=== PATIENT | female | born 1970 | race American Indian/Alaskan Native ===

== ENCOUNTER 2016-08-02 19:23 | Emergency (ER) | payer BC ==
[2016-08-02 20:45] VITALS: BP 123/79
--- NOTE | 2016-08-02 21:35 | Emergency Department Report ---
Chief Complaint: Abdominal Pain Stated Complaint: FATIGUE/HEADACHE Time Seen by Provider: 08/02/16 21:20 - HPI History of Present Illness: 46-year-old female presents today complaining of cough and cold symptoms, fatigue, abdominal pain. Patient states that she has been having cough and cold symptoms 1.5 weeks. Patient was given a Z-Nemesio and steroids by primary care provider and reports no symptomatic relief. Also complaining of right- sided abdominal pain with discolored bowel movement 3 days. - ROS Review of Systems: Per HPI - Exam Vital Signs: Vital Signs 08/02/16 20:36 Temperature 98.8 F Pulse Rate 85 Respiratory 18 Rate Blood Pressure 123/79 O2 Sat by Pulse 100 Oximetry Physical Exam: General: 46-year-old female in no acute distress. Well-developed, well- nourished. CV: Regular rate and rhythm. Lungs: Clear to auscultation bilaterally. Abdomen: Minimal tenderness to palpation of right upper quadrant. No guarding or rebound tenderness. MSE screening note: Focused history and physical exam performed. Due to findings the following was ordered: ED Disposition for MSE Condition: Stable Instructions: Abdominal Pain (ED)
[2016-08-02 22:27] LABS: Hematocrit 43.4 % (30.3-42.9); Hemoglobin 14.5 gm/dl (10.1-14.3); Mean Corpuscular HGB Conc 33 % (30-34); Mean Corpuscular Hemoglobin 29 pg (28-32); Mean Corpuscular Volume 86 fl (79-97); Platelet Count 244 K/mm3 (140-440); Red Blood Count 5.03 M/mm3 (3.65-5.03); Red Cell Distribution Width 13.1 % (13.2-15.2); White Blood Count 8.5 K/mm3 (4.5-11.0)
[2016-08-02 23:08] LABS: Basophils % (Manual) 0 % (0.0-1.8); Blastocytes % (Manual) 0 %; Diff Status Complete; RBC Morphology Normal
[2016-08-03 00:11] LABS: Alanine Aminotransferase 23 units/L (7-56); Albumin 4.3 g/dL (3.9-5); Albumin/Globulin Ratio 1.3 %; Alkaline Phosphatase 71 units/L (35-129); Anion Gap 20 mmol/L; Bilirubin,Total 0.2 mg/dL (0.1-1.2); Blood Urea Nitrogen 14 mg/dL (7-17); Calcium 9.3 mg/dL (8.4-10.2); Carbon Dioxide 25 mmol/L (22-30); Chloride 101.4 mmol/L (98-107); Glucose 96 mg/dL (65-100); Lipase 40 units/L (13-60); Potassium 3.2 mmol/L (3.6-5.0); Sodium 143 mmol/L (137-145); Total Protein 7.6 g/dL (6.3-8.2)
[2016-08-03 00:19] LABS: Bilirubin,Direct < 0.2 mg/dL (0-0.2)
--- NOTE | 2016-08-04 18:31 | ED Elopement Review ---
ED Pt Elopement review - Results review Lab results: Laboratory Tests 08/02/16 08/02/16 08/02/16 21:47 21:47 21:47 WBC 8.5 RBC 5.03 Hgb 14.5 H Hct 43.4 H MCV 86 MCH 29 MCHC 33 RDW 13.1 L Plt Count 244 Add Manual Diff Complete Total Counted 100 Seg Neuts % (Manual) 51.0 Band Neutrophils % 0 Lymphocytes % (Manual) 43.0 H Reactive Lymphs % (Man) 0 Monocytes % (Manual) 5.0 Eosinophils % (Manual) 1.0 Basophils % (Manual) 0 Metamyelocytes % 0 Myelocytes % 0 Promyelocytes % 0 Blast Cells % 0 Nucleated RBC % Not Reportable Seg Neutrophils # Man 4.3 Band Neutrophils # 0.0 Lymphocytes # (Manual) 3.7 Abs React Lymphs (Man) 0.0 Monocytes # (Manual) 0.4 Eosinophils # (Manual) 0.1 Basophils # (Manual) 0.0 Metamyelocytes # 0.0 Myelocytes # 0.0 Promyelocytes # 0.0 Blast Cells # 0.0 WBC Morphology Not Reportable Hypersegmented Neuts Not Reportable Hyposegmented Neuts Not Reportable Hypogranular Neuts Not Reportable Smudge Cells Not Reportable Toxic Granulation Not Reportable Toxic Vacuolation Not Reportable Dohle Bodies Not Reportable Pelger-Huet Anomaly Not Reportable Issac Rods Not Reportable Platelet Estimate Appears normal Clumped Platelets Not Reportable Plt Clumps, EDTA Not Reportable Large Platelets Not Reportable Giant Platelets Not Reportable Platelet Satelliting Not Reportable Plt Morphology Comment Not Reportable RBC Morphology Normal Dimorphic RBCs Not Reportable Polychromasia Not Reportable Hypochromasia Not Reportable Poikilocytosis Not Reportable Anisocytosis Not Reportable Microcytosis Not Reportable Macrocytosis Not Reportable Spherocytes Not Reportable Pappenheimer Bodies Not Reportable Sickle Cells Not Reportable Target Cells Not Reportable Tear Drop Cells Not Reportable Ovalocytes Not Reportable Helmet Cells Not Reportable [place] Bodies Not Reportable [place] Rings Not Reportable Andrew Cells Not Reportable Bite Cells Not Reportable Crenated Cell Not Reportable Elliptocytes Not Reportable Acanthocytes (Spur) Not Reportable Rouleaux Not Reportable Hemoglobin C Crystals Not Reportable Schistocytes Not Reportable Malaria parasites Not Reportable Stan Bodies Not Reportable Hem Pathologist Commnt No Sodium 143 Potassium 3.2 L Chloride 101.4 Carbon Dioxide 25 Anion Gap 20 BUN 14 Creatinine 0.5 L Estimated GFR > 60 BUN/Creatinine Ratio 28.00 Glucose 96 Calcium 9.3 Total Bilirubin 0.2 Direct Bilirubin < 0.2 Indirect Bilirubin 0.0 AST 16 ALT 23 Alkaline Phosphatase 71 Total Protein 7.6 Albumin 4.3 Albumin/Globulin Ratio 1.3 Amylase 105 Lipase 40 - Call Back decision Pt Call Back Decision: Pt to F/U with PMD
== END 2016-08-02 23:45 | disposition left against medical advice (07) ==
LOC: ED 19:23
DX: R05 Cough (principal); R53.83 Other fatigue; R10.9 Unspecified abdominal pain; Z53.21 Procedure and treatment not carried out due to patient leaving prior to being seen by health care provider
CPT/HCPCS: 36415; 80048; 80074; 82150; 83690; 85007; 85025

== ENCOUNTER 2016-09-19 15:33 | Emergency (ER) | payer BC ==
[2016-09-19 15:56] VITALS: BP 115/75
--- NOTE | 2016-09-19 20:08 | Emergency Department Report ---
- General Chief Complaint: Sore Throat Stated Complaint: SORE THROAT Time Seen by Provider: 09/19/16 20:03 Source: patient Mode of arrival: Ambulatory Limitations: No Limitations - History of Present Illness Initial Comments: 46 F PMH Lap band surgery, kidney stones, presents with complaint of one month of slightly productive cough. Patient is awake alert and oriented 3 denies any chest pain no palpitations states that she has a sore throat and has had a persistent cough for nearly 1 month. Patient was recently on a course of azithromycin and Levaquin prescribed by her primary doctor, states that she finished Levaquin approximately 5 or 6 days ago but is still having a cough. Denies any fever or chills. Eyes any abdominal pain. Denies any recent travel. 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 MD Complaint: cough, sore throat Onset/Timin -: week(s) Severity: moderate Worsens With: nothing Context: sick contacts Associated Symptoms: sore throat, cough - Related Data Previous Rx's Medication Instructions Recorded Last Taken Type Amoxicillin 500 mg PO BID #20 tablet 07/19/14 Unknown Rx Guaifenesin/Codeine Phosphate 10 ml PO BID #118 ml 07/19/14 Unknown Rx [guaiFENesin-Codeine Syrup] Ibuprofen [Motrin 800 MG tab] 800 mg PO Q8H PRN #21 tablet 07/19/14 Unknown Rx Loratadine [Claritin RAPDIS] 10 mg PO QDAY #30 tab.rapdis 07/19/14 Unknown Rx HYDROcodone/APAP 5-325 [[place] 1 each PO Q6HR PRN #12 tablet 08/26/14 Unknown Rx 5-325 mg TAB] Lansoprazole [Prevacid] 15 mg PO QDAY #30 cap 08/26/14 Unknown Rx Ondansetron [Zofran TAB] 4 mg PO Q6HR PRN #15 tablet 08/26/14 Unknown Rx ALBUTEROL Inhaler [ProAir HFA 1 puff IH Q4H PRN #1 inha 09/19/16 Unknown Rx Inhaler] Benzocaine/Menthol [Cepacol Sore 1 each MM Q4H PRN #18 lozenge 09/19/16 Unknown Rx Throat Lozenge] Allergies Allergy/AdvReac Type Severity Reaction Status Date / Time No Known Allergies Allergy Verified 03/03/15 09:32 ED Review of Systems ROS: Stated complaint: SORE THROAT Other details as noted in HPI Constitutional: denies: chills, fever Eyes: denies: eye pain, eye discharge, vision change ENT: denies: ear pain, throat pain Respiratory: denies: cough, shortness of breath, wheezing Cardiovascular: denies: chest pain, palpitations Endocrine: no symptoms reported Gastrointestinal: denies: abdominal pain, nausea, diarrhea Genitourinary: denies: urgency, dysuria, discharge Musculoskeletal: denies: back pain, joint swelling, arthralgia Skin: denies: rash, lesions Neurological: denies: headache, weakness, paresthesias Psychiatric: denies: anxiety, depression Hematological/Lymphatic: denies: easy bleeding, easy bruising ED Past Medical Hx - Past Medical History Previous Medical History?: Yes Hx Kidney Stones: Yes - Surgical History Past Surgical History?: Yes Hx Cholecystectomy: Yes Additional Surgical History: Lap band, hysterectomy, lithotripsy x 3 - Social History Smoking Status: Current Some Day Smoker Substance Use Type: Alcohol - Medications Home Medications: Home Medications Medication Instructions Recorded Confirmed Last Taken Type Amoxicillin 500 mg PO BID #20 tablet 07/19/14 Unknown Rx Guaifenesin/Codeine Phosphate 10 ml PO BID #118 ml 07/19/14 Unknown Rx [guaiFENesin-Codeine Syrup] Ibuprofen [Motrin 800 MG tab] 800 mg PO Q8H PRN #21 tablet 07/19/14 Unknown Rx Loratadine [Claritin RAPDIS] 10 mg PO QDAY #30 tab.rapdis 07/19/14 Unknown Rx HYDROcodone/APAP 5-325 [[place] 1 each PO Q6HR PRN #12 tablet 08/26/14 Unknown Rx 5-325 mg TAB] Lansoprazole [Prevacid] 15 mg PO QDAY #30 cap 08/26/14 Unknown Rx Ondansetron [Zofran TAB] 4 mg PO Q6HR PRN #15 tablet 08/26/14 Unknown Rx ALBUTEROL Inhaler [ProAir HFA 1 puff IH Q4H PRN #1 inha 09/19/16 Unknown Rx Inhaler] Benzocaine/Menthol [Cepacol Sore 1 each MM Q4H PRN #18 lozenge 09/19/16 Unknown Rx Throat Lozenge] ED Physical Exam - General Limitations: No Limitations General appearance: alert, in no apparent distress - Head Head exam: Present: atraumatic, normocephalic - Eye Eye exam: Present: normal appearance, PERRL, EOMI - ENT ENT exam: Present: mucous membranes moist - Neck Neck exam: Present: normal inspection, full ROM - Respiratory Respiratory exam: Present: normal lung sounds bilaterally. Absent: respiratory distress - Cardiovascular Cardiovascular Exam: Present: regular rate, normal rhythm. Absent: systolic murmur, diastolic murmur, rubs, gallop - GI/Abdominal GI/Abdominal exam: Present: soft, normal bowel sounds - Extremities Exam Extremities exam: Present: normal inspection - Back Exam Back exam: Present: normal inspection - Neurological Exam Neurological exam: Present: alert, oriented X3, CN II-XII intact, normal gait - Psychiatric Psychiatric exam: Present: normal affect, normal mood - Skin Skin exam: Present: warm, dry, intact, normal color. Absent: rash ED Course Vital Signs 09/19/16 15:54 Temperature 98.2 F Pulse Rate 88 Respiratory 20 Rate Blood Pressure 115/75 O2 Sat by Pulse 97 Oximetry ED Medical Decision Making - Lab Data Result diagrams: 09/19/16 20:17 09/19/16 20:17 - Medical Decision Making A/P: Bronchitis, viral syndrome, URI 1-strep test and influenza negative 2-x-ray unremarkable 3-labs within normal limits 4-albuterol inhaler PRN, guaifenessin PRN. I advised pt to f/u with her PMD 5- i reviewed CXR with Dr. Vazquez, no PNA Critical care attestation.: If time is entered above; I have spent that time in minutes in the direct care of this critically ill patient, excluding procedure time. ED Disposition Clinical Impression: Viral syndrome Upper respiratory infection Qualifiers: URI type: unspecified viral URI Qualified Code(s): J06.9 - Acute upper respiratory infection, unspecified; B97.89 - Other viral agents as the cause of diseases classified elsewhere Disposition: DISCHARGED TO HOME OR SELFCARE Is pt being admited?: No Does the pt Need Aspirin: No Condition: Stable Instructions: Upper Respiratory Infection (ED), Viral Syndrome (ED), Cold Symptoms (ED) Prescriptions: ALBUTEROL Inhaler [ProAir HFA Inhaler] 1 puff IH Q4H PRN #1 inha PRN Reason: Cough Benzocaine/Menthol [Cepacol Sore Throat Lozenge] 1 each MM Q4H PRN #18 lozenge PRN Reason: Cough Referrals: LEON FERREIRA MD [Staff Physician] - 3-5 Days Forms: Work/School Release Form(ED) Time of Disposition: 21:53
[2016-09-19 20:51] LABS: Basophils % (Auto) 0.5 % (0.0-1.8); Eosinophils % (Auto) 3.6 % (0.0-4.3); Hemoglobin 14.7 gm/dl (10.1-14.3); Mean Corpuscular HGB Conc 33 % (30-34); Mean Corpuscular Hemoglobin 29 pg (28-32); Mean Corpuscular Volume 86 fl (79-97); Platelet Count 197 K/mm3 (140-440); Red Blood Count 5.12 M/mm3 (3.65-5.03); Red Cell Distribution Width 13.5 % (13.2-15.2)
[2016-09-19 21:09] LABS: Anion Gap 17 mmol/L; BUN/Creatinine Ratio 28.33; Blood Urea Nitrogen 17 mg/dL (7-17); Calcium 9.4 mg/dL (8.4-10.2); Carbon Dioxide 24 mmol/L (22-30); Chloride 101.7 mmol/L (98-107); Glucose 96 mg/dL (65-100); Potassium 3.9 mmol/L (3.6-5.0); Sodium 139 mmol/L (137-145)
--- NOTE | 2016-09-20 08:23 | XRay Report ---
ROUTINE CHEST, TWO VIEWS: PA and lateral views demonstrate the heart and mediastinal contour to be of normal size and shape. The lungs are clear and fully expanded and the soft tissues and bony structures are normal. IMPRESSION: Normal study.
== END 2016-09-19 22:27 | disposition home or self-care (01) ==
LOC: ED 15:33
DX: J06.9 Acute upper respiratory infection, unspecified (principal); B97.89 Other viral agents as the cause of diseases classified elsewhere; B34.9 Viral infection, unspecified; F17.200 Nicotine dependence, unspecified, uncomplicated
CPT/HCPCS: 36415; 71020; 80048; 82805; 85025; 87116; 87400; 87430; 99283

== ENCOUNTER 2016-10-18 14:07 | Outpatient (CLI) | payer BC ==
--- NOTE | 2016-10-19 10:50 | Magnetic Resonance Report ---
MRI LUMBAR SPINE WITHOUT CONTRAST HISTORY: Lower back pain. TECHNIQUE: axial T1, T2. sagittal T1,T2, STIR. COMPARISON: none. FINDINGS: The conus terminates at L1. No signal abnormality or mass. The cauda equina is within normal limits. No central canal stenosis. Normal height and alignment of the lumbar vertebra. The facet joints are in appropriate relationship. Normal bone marrow signal. 1 cm vertebral bone marrow angioma and L1 is noted. No acute fracture or suspicious bone lesion. Mild disc desiccation and minimal narrowing is noted at the L4-5 disc space. The remaining discs are within normal limits. Minimal to mild diffuse facet arthropathy. L4-5 is also the most affected level. An approximate 1 cm synovial cyst projects posteriorly from the right facet joint at this level. The paraspinal soft tissues are unremarkable. L1-2: No abnormality. L2-3: No abnormality. L3-4: No abnormality. L4-5: Mild disc desiccation and narrowing. No bulging disc, herniation or canal stenosis. Mild facet arthropathy. L5-S1: No abnormality. IMPRESSION: Mild lumbar spondylosis as outlined above. L4-5 is the most affected level. No evidence for central canal narrowing or neural foraminal narrowing..
== END 2016-10-18 14:08 | disposition home or self-care (01) ==
LOC: MRI 14:07
PROVIDERS: ATTEND Internal Medicine
DX: M47.896 Other spondylosis, lumbar region (principal); M71.38 Other bursal cyst, other site; M12.88 Other specific arthropathies, not elsewhere classified, other specified site
CPT/HCPCS: 72148

== ENCOUNTER 2017-06-21 15:20 | Outpatient (CLI) | payer BC ==
--- NOTE | 2017-06-22 15:28 | Mammography Report ---
BILATERAL DIGITAL SCREENING MAMMOGRAM with CAD : 06/21/17 15:20:00 CLINICAL: Routine screening.Previous bilateral benign biopsies. COMPARISON:2012, 2014 and 2015 mammograms from [facility] FINDINGS: The breasts are heterogeneously dense, which may obscure small masses. Stable left retroareolar parenchymal asymmetry with architectural distortion. No mass or suspicious calcifications. IMPRESSION: No mammographic evidence of malignancy. BI-RADS CATEGORY: 2 -- Benign RECOMMENDATION: Routine mammographic screening in one year. COMMENT: Patient follow-up letters are generated by our [employer] application.
== END 2017-06-21 15:21 | disposition home or self-care (01) ==
LOC: SPVWC 15:20
DX: Z12.31 Encounter for screening mammogram for malignant neoplasm of breast (principal)
CPT/HCPCS: 77067; G0202

== ENCOUNTER 2017-09-19 20:06 | Emergency (ER) | payer BC ==
[2017-09-19 20:29] VITALS: BP 158/91
--- NOTE | 2017-09-19 21:32 | Cat Scan Report ---
FINAL REPORT PROCEDURE: CT ABDOMEN PELVIS WO CON TECHNIQUE: Computerized axial tomography of the abdomen and pelvis was performed without intravenous contrast. This study is performed without intravascular contrast material and its sensitivity for abdominal and pelvic pathology, including neoplasms, inflammation, abscess, free fluid, thrombosis, arterial dissection and infarction, is reduced compared with a contrast enhanced study. HISTORY: R mid back pain, h/o kidney stones COMPARISON: No prior studies are available for comparison. FINDINGS: Visualized lower thorax: No significant abnormality. Liver: Enlarged liver with diffuse fatty infiltration. Spleen: Normal size and attenuation. Gallbladder and biliary system: Metallic clips gallbladder fossa. Pancreas: Normal. Adrenals: Normal. Kidneys: Tiny calculi kidneys sub millimeter range left upper pole right upper pole right lower pole. GI tract: Gastric banding device with associated catheter and pump. Lymph nodes and mesentery: Normal. Vasculature: Normal. Bladder: Normal. Reproductive organs: Surgically absent. Peritoneum: No free fluid. Musculoskeletal structures: No significant abnormality. Other: None. IMPRESSION: Faint calculi suspected. No obstructive uropathy seen
[2017-09-19 22:50] LABS: Bilirubin,Urine NEG (Negative); Blood,Urine NEG (Negative); Color,Urine Yellow (Yellow); Mucus,Urine FEW /HPF; Protein,Urine <15 mg/dL mg/dL (Negative); RBC,Urine < 1.0 /HPF (0.0-6.0); Urobilinogen,Urine < 2.0 mg/dL (<2.0)
[2017-09-19 22:51] LABS: WBC,Urine < 1.0 /HPF (0.0-6.0)
[2017-09-19] MEDS ORDERED: NORCO 5/325 ONE (23:43)
[2017-09-19] MEDS ORDERED: NORCO 5/325 PO ONE (23:43)
--- NOTE | 2017-09-20 02:25 | Emergency Department Report ---
ED Back Pain/Injury HPI - General Chief Complaint: Back Pain/Injury Stated Complaint: BACK PAIN Time Seen by Provider: 09/20/17 01:30 Source: patient Mode of arrival: Ambulatory Limitations: No Limitations - History of Present Illness Initial Comments: This is a 47 y.o. female that presents with right flank pain while working out today at the gym. Patient reports lifting weights and filling like she pulled something but the pain was sharp and intermittent pain. She have a history of kidney stones and reports this pain as the same pain experienced with that in the past. States pain remains in right flank and non-radiating. Pain is 10/10 on pain scale. She is currently followed by pain management and taking medication for that which is not touching this pain. Patient states pain is so severe she can hardly catch her breath. States usually she have to have lethotripsy to resolve stones because they don't travel down. Denies change in voiding pattern, low abdominal pain, urgency, frequency, nausea, vomiting, or hematuria. MD Complaint: back pain -: This evening (while at the gym) Similar Symptoms Previously: Yes (history of kidney stones) Place: other (gym) Radiation: none Severity: severe Severity scale (0 -10): 10 Quality: sharp, stabbing, aching Consistency: intermittent Improves With: immobilization Worsens With: movement, deep breaths/cough Context: while lifting (weights at gym) Associated Symptoms: denies other symptoms Treatments Prior to Arrival: prescription analgesics - Related Data Previous Rx's Medication Instructions Recorded Last Taken Type Amoxicillin 500 mg PO BID #20 tablet 07/19/14 Unknown Rx Codeine Phosphate/Guaifenesin 10 ml PO BID #118 ml 07/19/14 Unknown Rx [guaiFENesin-Codeine Syrup] Ibuprofen [Motrin 800 MG tab] 800 mg PO Q8H PRN #21 tablet 07/19/14 Unknown Rx Loratadine [Claritin RAPDIS] 10 mg PO QDAY #30 tab.rapdis 07/19/14 Unknown Rx HYDROcodone/APAP 5-325 [[place] 1 each PO Q6HR PRN #12 tablet 08/26/14 Unknown Rx 5-325 mg TAB] Lansoprazole [Prevacid] 15 mg PO QDAY #30 cap 08/26/14 Unknown Rx Ondansetron [Zofran TAB] 4 mg PO Q6HR PRN #15 tablet 08/26/14 Unknown Rx ALBUTEROL Inhaler [ProAir HFA 1 puff IH Q4H PRN #1 inha 09/19/16 Unknown Rx Inhaler] Benzocaine/Menthol [Cepacol Sore 1 each MM Q4H PRN #18 lozenge 09/19/16 Unknown Rx Throat Lozenge] Allergies Allergy/AdvReac Type Severity Reaction Status Date / Time No Known Allergies Allergy Verified 09/09/14 09:32 ED Review of Systems ROS: Stated complaint: BACK PAIN Other details as noted in HPI Constitutional: denies: chills, fever Respiratory: denies: cough, shortness of breath, wheezing Cardiovascular: denies: chest pain, palpitations, dyspnea on exertion, edema Gastrointestinal: denies: abdominal pain, nausea, vomiting, diarrhea Genitourinary: denies: urgency, dysuria, discharge Musculoskeletal: back pain (right flank pain). denies: joint swelling, arthralgia Skin: denies: rash, lesions Neurological: denies: headache, weakness, paresthesias ED Past Medical Hx Family history: cancer, diabetes ED Back Pain Physical Exam - Exam General: Vital signs noted. No distress. Alert and acting appropriately. Back/Abdomen: Yes Flank Tenderness (right with deep palpation), No Abdominal Tenderness, No Perithoracic Tenderness, No Perilumbar Tenderness, No Sacroiliac Tenderness, No Straight Leg Raise Pain Neuro: Yes Normal Sensation, Yes Normal DTR's, Yes Normal Gait, No Motor Weakness ED Course Vital Signs 09/19/17 09/19/17 20:13 20:21 Temperature 98.1 F 98.1 F Pulse Rate 89 18 L Respiratory 18 18 Rate Blood Pressure 158/91 Blood Pressure 158/91 [Right] O2 Sat by Pulse 100 100 Oximetry ED Medical Decision Making - Radiology Data Radiology results: report reviewed CT of abdomen/pelvis IMPRESSION: Faint calculi suspected. No obstructive uropathy seen - Medical Decision Making This is a 47 year-old female that presents with right flank pain that started today at the gym. History of lithrotripsy x 3 times. Patient examined by me, no distress noted. Vitals stable. CT of abdomen and pelvis obtained. Patient informed of Faint calculi suspected. No obstructive uropathy seen. Obtained UA, unremarkable. Discussed results with patient and decision to treat outpatient. Patient will f/u with PCP. Referred to Urologist. Discharged home. Follow up with PCP or Urology in 24-72 hours if symptoms are worse. Critical care attestation.: If time is entered above; I have spent that time in minutes in the direct care of this critically ill patient, excluding procedure time. ED Disposition Clinical Impression: Nephrolithiasis, Right flank pain Low back pain Qualifiers: Chronicity: acute Back pain laterality: right Sciatica presence: without sciatica Qualified Code(s): M54.5 - Low back pain Disposition: TO HOME OR SELFCARE Is pt being admited?: No Does the pt Need Aspirin: No Condition: Stable Instructions: Renal Colic (ED), Kidney Stones (ED), How to Strain Your Urine ( ED) Additional Instructions: Increase fluid intake to 2 liters per day. Eat a low protein diet and low sodium diet. Strain urine. Referrals: RUSS ANN MD [Staff Physician] - 3-5 Days LINDA RAMÍREZ MD [Referring] - 3-5 Days Forms: Work/School Release Form(ED) Time of Disposition: 02:28 Print Language: ALBANIAN
== END 2017-09-20 02:30 | disposition home or self-care (01) ==
LOC: ED 20:06
DX: M54.5 Low back pain (principal); Z87.442 Personal history of urinary calculi
CPT/HCPCS: 74176; 81001; 99284